=== PATIENT | male | born 1990 | race Caucasian/White ===

== ENCOUNTER 2016-11-29 18:08 | Emergency (ER) | payer BC ==
[2016-11-29 18:30] LABS: BASO % 0.7 % (0-6); EOS % 2.6 % (0-6); GRAN % 61.5 % (47-80); HEMATOCRIT 41.6 % (42.0-52.0); LYMPH % 26.4 % (16-45); MEAN CELL VOLUME 90.6 fl (81-97); MEAN CORPUSCULAR HEMOGLOBIN 32.7 pg (27-33); MEAN CORPUSCULAR HGB CONC 36.1 g/dl (32-36); MONO % 8.8 % (0-9); PLATELET COUNT 246 K/uL (130-400); RED BLOOD COUNT 4.59 M/uL (4.40-5.70); RED CELL DISTRIBUTION WIDTH 12.1 % (11.5-14.5)
[2016-11-29] MEDS: 0.9 % SODIUM CHLORIDE 1000ML 1,000 ML IV SCH (18:34)
[2016-11-29 18:43] LABS: ALBUMIN 4.6 gm/dL (3.5-5.0); ALT/SGPT 56 U/L (21-72); ANION GAP 10.7 (7-16); AST/SGOT 23 U/L (17-59); BILIRUBIN,TOTAL 0.89 mg/dL (0.2-1.3); BLOOD UREA NITROGEN 11 mg/dL (9-20); CARBON DIOXIDE 25.3 mmol/L (22-30); CREATININE 0.8 mg/dL (0.66-1.25); EST GLOMERULAR FILTRATION RATE > 60 ml/min; GLUCOSE,RANDOM 86 mg/dL (70-110); TOTAL PROTEIN 6.8 gm/dL (6.3-8.2)
[2016-11-29 18:47] LABS: URINE APPEARANCE CLEAR; URINE BILIRUBIN NEGATIVE (NEGATIVE); URINE BLOOD NEGATIVE (NEGATIVE); URINE COLOR YELLOW; URINE GLUCOSE (UA) NEGATIVE (NEGATIVE); URINE KETONE NEGATIVE (NEGATIVE); URINE LEUKOCYTE ESTERASE NEGATIVE (NEGATIVE); URINE NITRITE NEGATIVE (NEGATIVE); URINE PROTEIN NEGATIVE (NEGATIVE); URINE UROBILINOGEN 0.2 E.U./dL (0.20 - 1.00)
--- NOTE | 2016-11-29 18:47 | Emergency Department Record ---
History of Present Illness - General Chief Complaint: Overdose Stated Complaint: OVERDOSE Time Seen by Provider: 11/29/16 18:20 Source: Patient, RN notes reviewed Mode of Arrival: EMS - History of Present Illness Initial Comments: patient walked into locker room store in [facility] and his girlfriend said he overdosed on percocet and soma and he has done this before . No trauma EMS called and he was given narcan 1mg and he became more responsive and he was talking to me upon arrival to the ED but with slurred speech and he has a good gag reflex. Moving all extremities to commands. Patient said he he wanted to get high and took to many pills. Onset/Timin -: Hour(s) - Galliano Coma Scale Eye Response: (4) Open spontaneously Motor Response: (6) Obeys commands Verbal Response: (5) Oriented Galliano Total: 15 Substance Ingested: Percocet Number of Pills Ingested: 4 Time of Ingestion: 17:10 - Detail Intent: Other How Overdose Was Discovered: Family/friend present at time Context: Accidental Overdose: Uncertain what happened Associated Symptoms: Lethargy, Other Treatments Prior to Arrival: Narcan - Related Data Previous Rx's Medication Instructions Recorded Albuterol Sulfate [Ventolin Hfa] 1 - 2 puff IH .EVERY 4-6 HOURS PRN 04/15/16 #1 inhaler Montelukast Sodium [Singulair] 10 mg PO QHS #20 tab 04/15/16 Allergies Allergy/AdvReac Type Severity Reaction Status Date / Time No Known Drug Allergies Allergy Unverified 09/07/16 18:13 Travel Screening - Travel/Exposure Within Last 30 Days Have you traveled within the last 30 days?: No - Travel/Exposure Within Last Year Have you traveled outside the [place] in the last year?: No - Additonal Travel Details Have you been exposed to anyone with a communicable illness?: No - Travel Symptoms Symptom Screening: None Review of Systems ROS unobtainable: Due to mental status, Other (obtained from EMS and policed) Reviewed: No additional complaints except as noted below Constitutional: Reports: As per HPI. Denies: Chills, Fever, Malaise, Night sweats, Weakness, Weight change Eyes: Reports: As per HPI. Denies: Eye discharge, Eye pain, Photophobia, Vision change ENT: Reports: As per HPI. Denies: Congestion, Dental pain, Ear pain, Epistaxis , Hearing loss, Throat pain Respiratory: Reports: As per HPI. Denies: Cough, Dyspnea, Hemoptysis, Stridor, Wheezes Cardiovascular: Reports: As per HPI. Denies: Arrhythmia, Chest pain, Dyspnea on exertion, Edema, Murmurs, Orthopnea, Palpitations, Paroxysmal nocturnal dyspnea, Rheumatic Fever, Syncope Endocrine: Reports: As per HPI. Denies: Fatigue, Heat or cold intolerance, Polydipsia, Polyuria Gastrointestinal: Reports: As per HPI. Denies: Abdominal pain, Constipation, Diarrhea, Hematemesis, Hematochezia, Melena, Nausea, Vomiting Genitourinary: Reports: As per HPI. Denies: Dysuria, Frequency, Hematuria, Incontinence, Retention, Testicular pain, Testicular mass, Urgency Musculoskeletal: Reports: As per HPI. Denies: Arthralgia, Back pain, Gout, Joint swelling, Myalgia, Neck pain Skin: Reports: As per HPI. Denies: Bruising, Change in color, Change in hair/ nails, Lesions, Pruritus, Rash Neurological: Reports: As per HPI. Denies: Abnormal gait, Confusion, Headache, Numbness, Paresthesias, Seizure, Tingling, Tremors, Vertigo, Weakness Psychiatric: Reports: As per HPI. Denies: Anxiety, Auditory hallucinations, Depression, Homicidal thoughts, Suicidal thoughts, Visual hallucinations Hematological/Lymphatic: Reports: As per HPI. Denies: Anemia, Blood Clots, Easy bleeding, Easy bruising, Swollen glands Past Medical History - SOCIAL HISTORY Smoking Status: Light tobacco smoker (<10/day) Alcohol Use Comment: unable to assess - RESPIRATORY Hx Respiratory Disorders: Yes Hx Asthma: Yes - CARDIOVASCULAR Hx Cardio Disorders: No - NEURO Hx Neuro Disorders: No - GI Hx GI Disorders: No - Hx Genitourinary Disorders: No - ENDOCRINE Hx Endocrine Disorders: No - MUSCULOSKELETAL Hx Musculoskeletal Disorders: No - PSYCH Hx Psych Problems: No - HEMATOLOGY/ONCOLOGY Hx Hematology/Oncology Disorders: No Family Medical History Any Significant Family History?: No Physical Exam - General General Appearance: Oriented x3, Cooperative, No acute distress, Moderate distress - Head Head exam: Normal inspection - Eye Eye exam: Normal appearance, PERRL Pupils: Normal accommodation - ENT ENT exam: Mucous membranes moist, Normal external ear exam, Normal orophraynx, TM's normal bilaterally, Other (good gag reflex) Ear exam: Normal external inspection. negative: External canal tenderness Nasal Exam: Normal inspection. negative: Discharge, Sinus tenderness Mouth exam: Normal external inspection, Tongue normal Teeth exam: Normal inspection. negative: Dental caries Throat exam: Normal inspection. negative: Tonsillar erythema, Tonsillar exudate - Neck Neck exam: Normal inspection, Full ROM. negative: Tenderness - Respiratory Respiratory exam: Normal lung sounds bilaterally. negative: Respiratory distress - Cardiovascular Cardiovascular Exam: Regular rate, Normal rhythm, Normal heart sounds, Tachycardia - GI/Abdominal GI/Abdominal exam: Soft, Normal bowel sounds. negative: Tenderness - Rectal Rectal exam: Deferred - exam: Deferred - Extremities Extremities exam: Normal inspection, Full ROM, Normal capillary refill. negative: Tenderness - Back Back exam: Reports: Normal inspection, Full ROM. Denies: Muscle spasm, Rash noted, Tenderness - Neurological Neurological exam: Alert, Normal gait, Oriented X3, Reflexes normal - Psychiatric Psychiatric exam: Normal affect, Normal mood - Skin Skin exam: Dry, Intact, Normal color, Warm Course Vital Signs 11/29/16 11/29/16 11/29/16 18:10 18:18 18:32 Temperature 99.0 F Pulse Rate 140 H Pulse Rate [ 124 H 120 H Pulse Ox Probe] Respiratory 24 28 H 28 H Rate Blood Pressure 109/95 Blood Pressure 126/75 120/79 [Right Arm] Pulse Ox 97 97 97 improving and wants to go home - Reevaluation(s) Reevaluation #1: dad's here and willing to take him home, neuro improved and discussed risks with Dad and he will watch him and not let him take any more narcotics or any meds 11/29/16 21:56 11/29/16 21:59 Reevaluation #2: vitals are still abnormal and will admit for observation. 11/29/16 22:07 Reevaluation #3: discussed case with Marcela and will admit to Dr Duran 11/29/16 22:33 Medical Decision Making - Data Complexity MDM Data: Labs Ordered and/or Reviewed, EKG Ordered and/or Reviewed (No acute changes with tachycardia) - Lab Data Result diagrams: 11/29/16 18:15 11/29/16 18:15 Lab Results 11/29/16 Range/Units 18:15 WBC 7.0 (4.2-12.2) K/uL RBC 4.59 (4.40-5.70) M/uL Hgb 15.0 (14.0-18.0) gm/dl Hct 41.6 L (42.0-52.0) % MCV 90.6 (81-97) fl MCH 32.7 (27-33) pg MCHC 36.1 H (32-36) g/dl RDW 12.1 (11.5-14.5) % Plt Count 246 (130-400) K/uL MPV 11.0 H (7.4-10.4) fl Gran % 61.5 (47-80) % Lymphocytes % 26.4 (16-45) % Monocytes % 8.8 (0-9) % Eosinophils % 2.6 (0-6) % Basophils % 0.7 (0-6) % Disposition Clinical Impression: Narcotic overdose Qualifiers: Encounter type: initial encounter Injury intent: accidental or unintentional Qualified Code(s): T40.601A - Poisoning by unspecified narcotics, accidental ( unintentional), initial encounter Decision to Admit: Admit from ER Condition: (2) Stable Forms: Patient Portal Access Quality - Quality Measures Quality Measures: N/A - Blood Pressure Screening Does Patient Have Any of the Following: No Blood Pressure Classification: Hypertensive Reading Systolic Measurement: 109 Diastolic Measurement: 95 Screening for High Blood Pressure: < Normal BP, F/U Not Required > [G8783]
[2016-11-29 18:48] LABS: ALKALINE PHOSPHATASE 51 U/L (38-126)
[2016-11-29 18:49] LABS: ACETAMINOPHEN < 10.0 ug/mL (10.0-30.0); SALICYLATE < 1.0 mg/dL (2.8-20.0)
[2016-11-29 18:51] LABS: AMPHETAMINE SCREEN URINE NOT DETECTED; BARBITURATE SCREEN URINE NOT DETECTED; BENZODIAZEPINE SCREEN URINE NOT DETECTED; COCAINE SCREEN URINE NOT DETECTED; METHADONE SCREEN URINE NOT DETECTED; METHAMPHETAMINE SCREEN NOT DETECTED; OPIATE SCREEN URINE NOT DETECTED; OXYCODONE SCREEN URINE NOT DETECTED; PHENCYCLIDINE SCREEN URINE NOT DETECTED; PROPOXYPHENE SCREEN URINE NOT DETECTED; THC SCREEN URINE DETECTED; TRICYCLIC ANTIDEPRESSANT SCRN NOT DETECTED
[2016-11-29] MEDS: 0.9 % SODIUM CHLORIDE 1000ML 1,000 ML IV PRN (19:25)
[2016-11-29] MEDS ORDERED: LORAZEPAM 2 MG/ML VIAL IV ONE (22:22)
[2016-11-29] MEDS ORDERED: LORAZEPAM 2 MG/ML VIAL IV PRN (22:36)
--- NOTE | 2016-11-29 22:51 | Discharge Note ---
VTE H&P Assessment - Risk for VTE Risk for VTE: Yes Risk Level: Moderate Risk Assessment Date: 11/29/16 Risk Assessment Time: 22:49 VTE Orders Placed or Will Be Placed: Yes Discharge Medications - Discharge Medications Home Medications: Ambulatory Orders Albuterol Sulfate [Ventolin Hfa] 1 - 2 puff IH .EVERY 4-6 HOURS PRN #1 inhaler 04/15/16 [Last Taken Unknown] Montelukast Sodium [Singulair] 10 mg PO QHS #20 tab 04/15/16 [Last Taken Unknown ] Discharge Note - Date Date of Discharge Note: 11/29/16 Disposition: Home, Self-Care Condition: (2) Stable Additional Instructions: patient refusing to stay and is signing out AMA and Dad could not talk him in to staying. Patient alert and oriented times three and neuro intact. Discussed risk of dying and seizures and he said he is leaving AMA forms filled out. Forms: Patient Portal Access
[2016-11-30] MEDS ORDERED: ENOXAPARIN 40 MG/0.4 ML SYR SC SCH (10:00)
== END 2016-11-29 23:10 | disposition home or self-care (01) ==
LOC: ER 18:08
DX: T42.8X1A Poisoning by antiparkinsonism drugs and other central muscle-tone depressants, accidental (unintentional), initial encounter (principal); T40.2X1A Poisoning by other opioids, accidental (unintentional), initial encounter
CPT/HCPCS: 99284 ×2; 96360; 96361; 85025; 80076; 80048; 81003; 80305; 93005; 93010; G0480 ×3; 80320; 80329; J7030

== ENCOUNTER 2019-02-18 23:33 | Emergency (ER) | payer SELFPAY ==
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
[2019-02-18] MEDS ORDERED: 0.9 % SODIUM CHLORIDE 1000ML 1,000 ML IV SCH (23:45)
[2019-02-18 23:48] LABS: ABSOLUTE NEUTROPHIL COUNT 3.82; BASO % 0.4 % (0-6); EOS % 4.6 % (0-6); GRAN % 46.2 % (47-80); HEMATOCRIT 42.4 % (42.0-52.0); HEMOGLOBIN 14.2 gm/dl (14.0-18.0); LYMPH % 44.2 % (16-45); MEAN CELL VOLUME 91.6 fl (81-97); MEAN CORPUSCULAR HEMOGLOBIN 30.7 pg (27-33); MEAN CORPUSCULAR HGB CONC 33.5 g/dl (32-36); MEAN PLATELET VOLUME 10.5 fl (7.4-10.4); MONO % 4.6 % (0-9); PLATELET COUNT 249 K/uL (130-400); RED BLOOD COUNT 4.63 M/uL (4.40-5.70); RED CELL DISTRIBUTION WIDTH 12.7 % (11.5-14.5); WHITE BLOOD COUNT W/O DIFF 8.3 K/uL (4.2-12.2)
[2019-02-18 23:58] LABS: BLOOD UREA NITROGEN 17 mg/dL (6-20); CREATININE 0.8 mg/dL (0.7-1.2); EST GLOMERULAR FILTRATION RATE > 60 mL/min
[2019-02-18 23:59] LABS: BILIRUBIN,TOTAL < 0.20 mg/dL (0.2-1.0); TOTAL PROTEIN 6.8 g/dL (6.6-8.7)
[2019-02-19 00:01] LABS: GLUCOSE,RANDOM 107 mg/dL (74-109)
[2019-02-19 00:04] LABS: ALB/GLOB RATIO 2.1 (1.1-1.8); ALBUMIN 4.6 g/dL (4.0-5.0); ALKALINE PHOSPHATASE 71 U/L (40-129); ALT/SGPT 20 U/L (<41); AST/SGOT 16 U/L (10.0-50.0)
[2019-02-19 00:27] LABS: ABO GROUP A; RH TYPE POSITIVE
[2019-02-19 00:28] LABS: ANTIBODY SCREEN NEGATIVE (NEGATIVE)
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
[2019-02-19] MEDS ORDERED: 0.9 % SODIUM CHLORIDE 1000ML 1,000 ML IV SCH (00:45)
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
== END 2019-02-19 01:17 | disposition short-term general hospital (02) ==
LOC: ER 23:33
DX: S00.01XA Abrasion of scalp, initial encounter (principal); S90.512A Abrasion, left ankle, initial encounter; T42.8X1A Poisoning by antiparkinsonism drugs and other central muscle-tone depressants, accidental (unintentional), initial encounter; R41.82 Altered mental status, unspecified; V03.90XA Pedestrian on foot injured in collision with car, pick-up truck or van, unspecified whether traffic or nontraffic accident, initial encounter; F17.210 Nicotine dependence, cigarettes, uncomplicated
CPT/HCPCS: 70450; 71260; 72125; 74177; 80053; 80320; 85025; 86850; 86900; 86901; 96360; 99285

== ENCOUNTER 2019-02-25 05:34 | Emergency (ER) | payer SELFPAY ==
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
--- NOTE | 2019-02-25 09:38 | CT SCAN REPORT ---
EXAMINATION: CT Abdomen and Pelvis with and without IV Contrast EXAM DATE: 02/25/2019 9:13 AM TECHNIQUE: CT imaging of the abdomen and pelvis was performed with intravenous contrast. Coronal and sagittal images were reconstructed. IV Contrast: The amount and type of contrast are recorded in the medical record. INDICATION: hematoma COMPARISON: Ultrasound 02/25/2019, AP CT 02/19/2019 ENCOUNTER: Not applicable CT ABDOMEN AND PELVIS FINDINGS: Lung Bases: Included extent of the lung bases are clear. Hepatobiliary: The liver has a normal size with a smooth surface. The hepatic and portal veins appear patent. Normal gallbladder Pancreas: The pancreas is normal. Spleen: The spleen is not enlarged. Adrenals: The adrenal glands are normal. Kidneys, Ureters, & Bladder: Both kidneys have a normal size and there is no hydronephrosis. Both ur eters have a normal caliber and the urinary bladder is unremarkable. Gastrointestinal: The stomach and small bowel are normal with no obstruction or inflammation. The lar ge bowel is normal. Reproductive Organs: Unremarkable Lymphatic System: There is no adenopathy within the abdomen or pelvis. Vasculature: Normal caliber abdominal aorta. Peritoneum: No free fluid, free air, or inflammation Abdominal Wall & Musculoskeletal: No suspicious bone lesions. New subcutaneous heterogenous mass lowe r mid lumbosacral region measuring 14 x 2.4 x 6.1 cm probable hematoma. No radiographic evidence of a ctive bleeding. IMPRESSION: Probable subcutaneous hematoma mid lower lumbosacral region 14 x 2.4 x 6.1 cm. Follow-up study until resolution as clinically directed. No radiographic evidence of active bleeding Dictated by: Neri Olmos MD on 02/25/2019 9:15 AM. .
== END 2019-02-25 10:01 | disposition home or self-care (01) ==
LOC: ER 05:34
DX: S30.0XXA Contusion of lower back and pelvis, initial encounter (principal); S30.810A Abrasion of lower back and pelvis, initial encounter; F17.210 Nicotine dependence, cigarettes, uncomplicated; V03.90XA Pedestrian on foot injured in collision with car, pick-up truck or van, unspecified whether traffic or nontraffic accident, initial encounter; Y92.410 Unspecified street and highway as the place of occurrence of the external cause
CPT/HCPCS: 74177; 76857; 99284